=== PATIENT | female | born 1970 | race Caucasian/White ===

== ENCOUNTER 2022-06-25 10:53 | Emergency (ER) | payer BC, MEDICAID, OTHER ==
[~2022-06-25] VITALS: Ht 167.6 cm; Wt 72.1 kg
[2022-06-25] MEDS ORDERED: IV NORMAL SALINE 250 ML BAG IV ONE (10:54)
[2022-06-25] MEDS ORDERED: IOHEXOL 350 100 ML INFUS..BTL IV ONE (10:54)
[2022-06-25] MEDS ORDERED: LIDOCAINE HCL 1% 20 ML VIAL ONE (11:03)
[2022-06-25] MEDS ORDERED: FLUO10CA26 PO (11:18)
[2022-06-25] MEDS ORDERED: ARIP5TAB10 PO (11:18)
[2022-06-25] MEDS ORDERED: PROP80CA51 PO (11:18)
--- NOTE | 2022-06-25 11:46 | NUR ---
PT IS IN ROOM #2B. DR LOMAX EVALUATED THE PT.
[2022-06-25 11:47] LABS: HEMATOCRIT 39.7 % (31.2-41.9); MEAN CORPUSCULAR HEMOGLOBIN 31.3 uug (24.7-32.8); MEAN CORPUSCULAR VOLUME 92.1 fL (75.5-95.3); PLATELET COUNT (AUTO) 275 K/uL (179-408)
[2022-06-25 11:53] LABS: CARBON DIOXIDE 27 mmol/L (21-32); CHLORIDE 103 mmol/L (98-107); CREATININE 0.9 mg/dL (0.6-1.3); GLUCOSE 90 mg/dL (74-106); POTASSIUM 3.7 mmol/L (3.5-5.1); UREA NITROGEN, BLOOD 13 mg/dL (7-18)
--- NOTE | 2022-06-25 14:04 | NUR ---
PT WENT TO [facility] FOR CT SCAN ANGIOGRAM VIA S AMBULANCE ACCORDING TO DR DAMI GATES.
--- NOTE | 2022-06-25 15:21 | NUR ---
PT CAME BACK FROM CT SCAN. PT TOLERATED TO PROCEDURE WITHOUT COMPLICATIONS. NO S/S OF ACUTE DISTRESS A THIS TIME.
[2022-06-25] MEDS ORDERED: IBUP-1955 PO (16:08)
[2022-06-25] MEDS ORDERED: IBUPROFEN 600 MG TABLET PO ONE (16:15)
--- NOTE | 2022-06-25 16:38 | NUR ---
PT WAS D/C'd TO HOME. D/C INSTRUCTIONS GIVEN TO THE PT BY DR LOMAX.
[2022-06-25 16:40] VITALS: BP 132/75
== END 2022-06-25 16:40 | disposition home or self-care (01) ==
LOC: ER 10:53
DX: R07.9 Chest pain, unspecified (principal); R91.1 Solitary pulmonary nodule; R00.1 Bradycardia, unspecified; E78.00 Pure hypercholesterolemia, unspecified; F41.9 Anxiety disorder, unspecified; F32.A Depression, unspecified; Z79.899 Other long term (current) drug therapy; F17.290 Nicotine dependence, other tobacco product, uncomplicated; J43.2 Centrilobular emphysema
CPT/HCPCS: 99285; 71275; 71045; 99406; 80048; 85025; 85379; 84484 ×2; 36415; 93005; Q9967; A4663; J3490; J7040